=== PATIENT | male | born 2005 | race Caucasian/White ===

== ENCOUNTER 2024-12-18 22:35 | Emergency (ER) | payer SELFPAY ==
--- NOTE | 2024-12-18 22:41 | ED.GENADUL_ITS ---
Discharge Plan Disposition Patient Disposition: [facility] Condition: Good Discharge Details Clinical Impression: Encounter for medical assessment Primary Care Provider: Unknown,Unknown ED Provider: Heidi Garcia Home Meds and New Rx's Prescriptions: No Action melatonin 3 MG tablet 3 mg PO HS Patient Comments: 01/12/15- takes up to 5mg. HyacinthRN albuterol sulfate 8.5 GM HFA aerosol inhaler 1 - 2 puff Inhalation Q4H PRN Qty: 1 Rx Instructions: USE WITH SPACER PRN COUGH OR WHEEZE (DME) inhalational spacing device [OptiHaler Drug Delivery System] 1 EACH spacer 1 ea Miscellaneous PRN Qty: 1 Rx Instructions: USE WITH INHALER DIRECTED methylphenidate HCl [Concerta] 27 MG tablet extended release 24hr 1 tab PO DAILY Qty: 30 Discharge Instructions Additional Instructions: Please return to the emergency department if you have any concerns for which you would like to be evaluated. HPI General Date/Time Provider Initiated Documentation: 12/18/24 22:36 . Limitations to Documentation: other (pt refuses evaluation) . Information obtained by: patient and police . HPI Narrative: 19yo M presenting in policy custody. He denies any physical or mental complaints or concerns and refuses vital signs and medical evaluation. Refuses to answer further questions. Per JULIO, they brought him in for medical clearance; pt expressed no complaints or concerns to them and they are not aware of any trauma or injury. Related Data Home Medications ?Medication ?Instructions ?Recorded ?Confirmed melatonin 3 mg tablet 3 mg PO HS 12/24/12 12/30/12 albuterol sulfate 90 mcg/actuation 1 - 2 puff inhalati on Q4H PRN ##1 01/11/14 aerosol inhaler inhalational spacing device #1 unit 01/11/14 (OptiHaler Drug Delivery System spacer) methylphenidate HCl 27 mg 1 tab PO DAILY #30 tab-caps 06/07/15 tablet,extended release 24 hr (Concerta) Allergies Allergy/AdvReac Type Severity Reaction Status Date / Time No Known Allergies Allergy Unverified 11/09/15 20:23 General RICHIE: 3 Exam Narrative Exam Narrative: General: Alert, well appearing, well nourished, in no acute distress. Head: Normocephalic, atraumatic Neck: Trachea midline Cardiac: ?No visible cyanosis. Resp: No respiratory distress. Speaking in full sentences. Abd: ?Non-distended Extremities: ?No deformities.? Neurologic: Alert, appropriate behavior. Moves all extremities freely against gravity Psych: Does not appear to be responding to internal stimuli. Course Vital Signs Vital signs: Comment pt refusing vtals 12/18/24 22:38 Medical Decision Making 19yo M presenting in policy custody; JULIO state they brought him in for medical clearance. Per JULIO patient expressed no complaints or concerns to them and they are not aware of any trauma or injury. Patient denies any physical or mental complaints or concerns and refuses vital signs and medical evaluation, refuses to answer any further questions. Nontoxic and in no distress on non-contact exam. As patient does not want evaluation and is refusing assessment or care, and nothing on history or non-contact exam indicates emergent medical condition, he was discharged to police custody. He was encouraged to return should he develop symptoms for which he would like to be seen. PFS All Active Problems (Updated 12/18/24 @ 22:41 by Heidi Garcia MD) Encounter for medical assessment (Acute) Oppositional defiant disorder (Chronic) IEP in place. Asthma (Acute 07/16/12) BMI (body mass index), pediatric, 95-99% for age (Acute 02/23/15) Medical History (Updated 12/18/24 @ 22:41 by Heidi Garcia MD) ADHD (attention deficit hyperactivity disorder) History of pneumonia Eczema Anxiety History of asthma Learning difficulty involving reading Family History Mother Age: 44 Asthma Father Substance abuse Mental disorder depression and anxiety Asthma Social History Smoking/Tobacco Use Status: Never Smoking risk assessment performed?: Yes Drug use: Never Details: REFUSING TO ANSWER Additional Social history: REFUSING TO ANSWER
[2024-12-18 22:45] VITALS: RESP 20
== END 2024-12-18 22:50 ==
LOC: ER 22:43
PROVIDERS: Emergency Provider Student in an Organized Health Care Education/Training Program
DX: Z00.8 Encounter for other general examination (principal)
CPT/HCPCS: 99282; 99285